=== PATIENT | female | born 1975 | race Caucasian/White ===

== ENCOUNTER → 2020-10-29 | Outpatient (CLI) | payer BC, OTHER | LOC: KOH-I 13:45 | DX: M54.5 Low back pain (principal); M51.26 Other intervertebral disc displacement, lumbar region | CPT/HCPCS: 72148 ==

== ENCOUNTER 2022-04-08 14:03 | Emergency (ER) | payer BC | END 2022-04-08 17:17 | disposition home or self-care (01) | LOC: ER1 14:03 | DX: R51.9 Headache, unspecified (principal) | CPT/HCPCS: 70450; 96374; 96375; 99284; J0780; J1100; J1200 ==

== ENCOUNTER → 2022-06-01 | Outpatient (CLI) | payer BC | LOC: KOH-I 13:39 | DX: M25.561 Pain in right knee (principal); M25.461 Effusion, right knee; M17.11 Unilateral primary osteoarthritis, right knee; W19.XXXA Unspecified fall, initial encounter | CPT/HCPCS: 73718; 73721 ==